=== PATIENT | male | born 1940 | race Caucasian/White ===

== ENCOUNTER 2018-07-08 11:26 | Inpatient (IN) ==
[2018-07-08] MEDS ORDERED: FUROSEMIDE 100 MG/10 ML VIAL IV STA (11:48)
[2018-07-08 12:25] LABS: Basophils % 0.6 % (0.0-0.8); Eosinophils # 0.2 10*3/uL (0.0-0.87); Eosinophils % 3.7 % (0.00-10.9); Hematocrit 40.2 VOL% (42.0-52.0); Hemoglobin 12.6 GM/DL (14.0-18.0); Immature Granulocytes % 0.5 %; Immature Granulocytes Absolute 0.03 #; Lymphocytes # 1.2 10*3/uL (1.4-4.0); Lymphocytes % 18.6 % (21.2-54.2); Mean Corpuscular HGB Conc 31.3 GM/DL (32-36); Mean Corpuscular Hemoglobin 29 PG (27-34); Mean Corpuscular Volume 91.6 FL (87-102); Mean Platelet Volume 10.9 FL (9.6-12.0); Monocytes # 0.4 10*3/uL (0.11-0.8); Monocytes % 6.8 % (1.7-12.7); Neutrophils # 4.5 10*3/uL (1.4-7.4); Neutrophils % 69.8 % (38.7-73.9); Platelet Count 133 T/CUMM (130-400); Red Blood Count 4.39 MC/CUMM (3.8-5.5); Red Cell Distribution Width 15.8 % (9.3-17.3); White Blood Count 6.5 T/CUMM (4-12)
[2018-07-08] MEDS ORDERED: FUROSEMIDE 20 MG/2 ML VIAL ONE (12:29)
[2018-07-08] MEDS ORDERED: FUROSEMIDE 40 MG/4 ML VIAL ONE (12:29)
[2018-07-08 12:51] LABS: Albumin 3.7 G/DL (3.4-5.0); Bilirubin,Total 0.7 MG/DL (0.2-1.0); Calcium 8.7 MG/DL (8.5-10.1); Osmolality,Calculated 288.7 MOS/KG (273-304)
[2018-07-08] MEDS ORDERED: traMADol 50 MG TABLET ONE (15:07)
[2018-07-08] MEDS ORDERED: traMADol 50 MG TABLET PO STA (15:08)
[2018-07-08] MEDS ORDERED: ONDANSETRON 4 MG/2 ML VIAL IV PRN (16:22)
[2018-07-08] MEDS ORDERED: ACETAMINOPHEN 325 MG TABLET PO PRN (16:22)
[2018-07-08] MEDS ORDERED: ENOXAPARIN 40 MG/0.4 ML SYRINGE SUBCUT SCH (16:30)
[2018-07-08] MEDS ORDERED: DIAZEPAM 5 MG TABLET PO STA (17:11)
[2018-07-08] MEDS: LEVOFLOXACIN INJ 500 MG in PREMIX 1 EACH IV SCH (18:53)
[2018-07-08] MEDS: APIXABAN 5 MG TABLET PO SCH (21:11)
[2018-07-08] MEDS: FUROSEMIDE 40 MG/4 ML VIAL IV SCH (21:11)
[2018-07-08] MEDS: CLINDAMYCIN 300 MG CAPSULE PO SCH (21:11)
[2018-07-08] MEDS: TAMSULOSIN 0.4 MG CAPSULE PO SCH (21:19)
[2018-07-08] MEDS: CARVEDILOL 6.25 MG TABLET PO SCH (21:19)
[2018-07-08] MEDS: rOPINIRole 1 MG TABLET PO SCH (21:19)
[2018-07-08] MEDS: GABAPENTIN 400 MG CAPSULE PO SCH (21:19)
[2018-07-08 21:54] LABS: CKMB % 2.8 %
[2018-07-08 23:03] LABS: CKMB % 2.8 %
[2018-07-09 06:01] LABS: Risk Ratio 4.24; Thyroid Stimulating Hormone 1.9 uIU/ml (0.358-3.74); VLDL CHOLESTEROL 19.6 MG/DL
[2018-07-09] MEDS ORDERED: INSULIN ASPART PROTAMINE/ASPART 70/30 100 UNIT/ML SUBCUT SCH ×3 (07:30→17:00)
[2018-07-09] MEDS: LISINOPRIL 2.5 MG TABLET PO SCH (09:20)
[2018-07-09] MEDS: GABAPENTIN 400 MG CAPSULE PO SCH ×3 (09:20→21:33)
[2018-07-09] MEDS: APIXABAN 5 MG TABLET PO SCH ×2 (09:20→21:30)
[2018-07-09] MEDS: CARVEDILOL 6.25 MG TABLET PO SCH ×2 (09:20→20:29)
[2018-07-09] MEDS: CLINDAMYCIN 300 MG CAPSULE PO SCH ×3 (09:20→21:32)
[2018-07-09] MEDS: ASPIRIN EC 81 MG TABLET PO SCH (09:20)
[2018-07-09] MEDS: FUROSEMIDE 40 MG/4 ML VIAL IV SCH ×2 (09:21→21:30)
[2018-07-09] MEDS: LEVOFLOXACIN INJ 500 MG in PREMIX 1 EACH IV SCH (17:38)
[2018-07-09] MEDS: TAMSULOSIN 0.4 MG CAPSULE PO SCH (21:31)
[2018-07-09] MEDS: rOPINIRole 1 MG TABLET PO SCH (21:32)
[2018-07-10 06:02] LABS: Calcium 8.6 MG/DL (8.5-10.1); Osmolality,Calculated 286.4 MOS/KG (273-304); Potassium 3.8 MMOL/L (3.5-5.1)
[2018-07-10] MEDS ORDERED: INSULIN ASPART PROTAMINE/ASPART 70/30 100 UNIT/ML SUBCUT SCH (07:30)
[2018-07-10] MEDS: ASPIRIN EC 81 MG TABLET PO SCH (09:32)
[2018-07-10] MEDS: LISINOPRIL 2.5 MG TABLET PO SCH (09:32)
[2018-07-10] MEDS: GABAPENTIN 400 MG CAPSULE PO SCH (09:32)
[2018-07-10] MEDS: CARVEDILOL 6.25 MG TABLET PO SCH (09:32)
[2018-07-10] MEDS: APIXABAN 5 MG TABLET PO SCH (09:32)
[2018-07-10] MEDS: FUROSEMIDE 40 MG/4 ML VIAL IV SCH (09:33)
[2018-07-10] MEDS: CLINDAMYCIN 300 MG CAPSULE PO SCH (09:33)
[2018-07-10] MEDS ORDERED: LEVOFLOXACIN 500 MG TABLET PO SCH (12:00)
[2018-07-10 18:50] VITALS: BP 125/70
== END 2018-07-10 13:35 | disposition home or self-care (01) | DRG 291 ==
LOC: N.ED 11:26 → N.EDINP 16:22 → N.3E 18:20
PROVIDERS: ADMIT Hospitalist; ATTEND Hospitalist

== ENCOUNTER 2021-02-11 19:09 | Inpatient (IN) ==
[2021-02-11 19:32] LABS: Basophils % 0.3 % (0.0-0.8); Eosinophils # 0.2 10*3/uL (0.0-0.87); Eosinophils % 2.1 % (0.00-10.9); Hematocrit 38.7 VOL% (42.0-52.0); Immature Granulocytes % 0.6 %; Immature Granulocytes Absolute 0.06 #; Lymphocytes % 10.1 % (21.2-54.2); Mean Corpuscular Volume 94.2 FL (87-102); Mean Platelet Volume 11.4 FL (9.6-12.0); Monocytes % 5.4 % (1.7-12.7); Neutrophils % 81.5 % (38.7-73.9); Platelet Count 115 T/CUMM (130-400); Red Blood Count 4.11 MC/CUMM (3.8-5.5); White Blood Count 10.2 T/CUMM (4-12)
[2021-02-11 19:46] LABS: INR 1.2; PT Patient Result 12.8 SECS (9.8-11.9); Partial Thromboplastin Time 27.1 SECS (23.9-33.8)
[2021-02-11 20:02] LABS: Albumin 3.4 G/DL (3.4-5.0); Bilirubin,Total 1.4 MG/DL (0.2-1.0); Calcium 7.7 MG/DL (8.5-10.1); Osmolality,Calculated 291.1 MOS/KG (273-304); Potassium 3.8 MMOL/L (3.5-5.1); Total Protein 6.4 G/DL (6.4-8.2)
[2021-02-11 22:03] LABS: Bilirubin,Urine Negative (Negative); Blood, Urine Small mg/dL (Negative); Glucose,Urine (UA) 150 mg/dL (Negative); Hyaline Casts,Urine 7 /LPF (0-3); Ketones,Urine Negative (Negative); Mucus,Urine Occasional /LPF (Occasional); Nitrite,Urine Negative (Negative); Protein,Urine 30 MG/DL; RBC,Urine <1 /HPF (0-4); Squamous Epithelial Cell,Urine Occasional /HPF (0-10); Urine Appearance CLEAR (Clear); Urine Color Yellow (Yellow); Urine Specific Gravity 1.015 (1.001-1.035); WBC,Urine 1 /HPF (0-6)
[2021-02-12] MEDS ORDERED: ALBUTEROL/IPRATROPIUM 3 ML NEB RESP TX STA (02:48)
[2021-02-12] MEDS ORDERED: ONDANSETRON 4 MG/2 ML VIAL IV PRN (02:49)
[2021-02-12] MEDS ORDERED: GLUCAGON 1 MG VIAL IM PRN (02:49)
[2021-02-12] MEDS ORDERED: ALBUTEROL/IPRATROPIUM 3 ML NEB RESP TX PRN (02:49)
[2021-02-12] MEDS ORDERED: DEXTROSE 50% 25 GM/50 ML VIAL IV PRN (02:49)
[2021-02-12] MEDS ORDERED: DOCUSATE SODIUM 100 MG CAPSULE PO PRN (02:49)
[2021-02-12] MEDS: ENOXAPARIN 40 MG/0.4 ML SYRINGE SUBCUT SCH (03:37)
[2021-02-12] MEDS: FUROSEMIDE 40 MG/4 ML VIAL IV SCH ×3 (03:38→17:14)
[2021-02-12] MEDS ORDERED: CALCIUM GLUCONATE 1,000 MG in SODIUM CHLORIDE 0.9% 100 ML IV ONE (03:41)
[2021-02-12] MEDS: cefTRIAXone 1,000 MG in SYRINGE 1 EACH IV SCH (06:02)
[2021-02-12] MEDS: AZITHROMYCIN INJ 500 MG in SODIUM CHLORIDE 0.9% 250 ML IV SCH (06:05)
[2021-02-12 06:51] LABS: Basophils % 0.2 % (0.0-0.8); Eosinophils # 0.2 10*3/uL (0.0-0.87); Eosinophils % 2.4 % (0.00-10.9); Hematocrit 40.7 VOL% (42.0-52.0); Hemoglobin 12.8 GM/DL (14.0-18.0); Immature Granulocytes % 0.4 %; Immature Granulocytes Absolute 0.04 #; Lymphocytes # 1.6 10*3/uL (1.4-4.0); Lymphocytes % 15.7 % (21.2-54.2); Mean Corpuscular HGB Conc 31.4 GM/DL (32-36); Mean Corpuscular Volume 94.9 FL (87-102); Mean Platelet Volume 11.8 FL (9.6-12.0); Monocytes % 6.7 % (1.7-12.7); Neutrophils % 74.6 % (38.7-73.9); Platelet Count 117 T/CUMM (130-400); Red Blood Count 4.29 MC/CUMM (3.8-5.5); Red Cell Distribution Width 16.3 % (9.3-17.3); White Blood Count 9.9 T/CUMM (4-12)
[2021-02-12] MEDS ORDERED: INSULIN ASPART PROTAMINE/ASPART 70/30 100 UNIT/ML SUBCUT SCH (07:30)
[2021-02-12] MEDS: ACETAMINOPHEN 325 MG TABLET PO PRN (07:31)
[2021-02-12 07:37] LABS: Calcium 8.6 MG/DL (8.5-10.1); Osmolality,Calculated 282.4 MOS/KG (273-304); Potassium 3.7 MMOL/L (3.5-5.1); Risk Ratio 3.76; Thyroid Stimulating Hormone 1.1 uIU/ml (0.358-3.74); VLDL CHOLESTEROL 15.6 MG/DL
[2021-02-12] MEDS ORDERED: POTASSIUM CHLORIDE 20 MEQ TABLET PO PRN (08:15)
[2021-02-12] MEDS: GABAPENTIN 400 MG CAPSULE PO SCH ×3 (09:00→21:47)
[2021-02-12] MEDS ORDERED: lisinopriL 5 MG TABLET PO SCH (09:00)
[2021-02-12] MEDS ORDERED: lisinopriL 10 MG TABLET PO SCH (09:00)
[2021-02-12] MEDS: rOPINIRole 1 MG TABLET PO SCH ×2 (09:01→21:47)
[2021-02-12] MEDS: ASPIRIN EC 81 MG TABLET PO SCH (09:02)
[2021-02-12] MEDS: INSULIN LISPRO 100 UNIT/ML SUBCUT SCH ×4 (09:04→21:48)
[2021-02-12] MEDS: carvediloL 6.25 MG TABLET PO SCH ×2 (09:06→21:48)
[2021-02-12] MEDS: amLODIPine 10 MG TABLET PO SCH (09:12)
[2021-02-12] MEDS: TAMSULOSIN 0.4 MG CAPSULE PO SCH (21:47)
[2021-02-12] MEDS: INSULIN ASPART PROTAMINE/ASPART 70/30 100 UNIT/ML SUBCUT SCH (21:49)
[2021-02-13 03:53] LABS: Basophils % 0.2 % (0.0-0.8); Eosinophils # 0.2 10*3/uL (0.0-0.87); Eosinophils % 4.2 % (0.00-10.9); Hematocrit 35.3 VOL% (42.0-52.0); Hemoglobin 10.8 GM/DL (14.0-18.0); Immature Granulocytes % 0.4 %; Immature Granulocytes Absolute 0.02 #; Lymphocytes # 1.1 10*3/uL (1.4-4.0); Lymphocytes % 19.5 % (21.2-54.2); Mean Corpuscular HGB Conc 30.6 GM/DL (32-36); Mean Corpuscular Volume 95.1 FL (87-102); Mean Platelet Volume 11.9 FL (9.6-12.0); Monocytes % 7.4 % (1.7-12.7); Neutrophils % 68.3 % (38.7-73.9); Platelet Count 109 T/CUMM (130-400); Red Blood Count 3.71 MC/CUMM (3.8-5.5); Red Cell Distribution Width 15.8 % (9.3-17.3); White Blood Count 5.7 T/CUMM (4-12)
[2021-02-13] MEDS: ENOXAPARIN 40 MG/0.4 ML SYRINGE SUBCUT SCH (04:09)
[2021-02-13 04:12] LABS: Calcium 8.1 MG/DL (8.5-10.1); Osmolality,Calculated 285.3 MOS/KG (273-304); Potassium 3.6 MMOL/L (3.5-5.1)
[2021-02-13] MEDS: cefTRIAXone 1,000 MG in SYRINGE 1 EACH IV SCH (05:46)
[2021-02-13] MEDS: AZITHROMYCIN INJ 500 MG in SODIUM CHLORIDE 0.9% 250 ML IV SCH (05:46)
[2021-02-13] MEDS: ACETAMINOPHEN 325 MG TABLET PO PRN (07:38)
[2021-02-13] MEDS: INSULIN LISPRO 100 UNIT/ML SUBCUT SCH ×4 (08:49→22:10)
[2021-02-13] MEDS: GABAPENTIN 400 MG CAPSULE PO SCH ×3 (10:02→21:43)
[2021-02-13] MEDS: ASPIRIN EC 81 MG TABLET PO SCH (10:03)
[2021-02-13] MEDS: amLODIPine 10 MG TABLET PO SCH (10:03)
[2021-02-13] MEDS: carvediloL 6.25 MG TABLET PO SCH ×2 (10:04→21:43)
[2021-02-13] MEDS: FUROSEMIDE 40 MG/4 ML VIAL IV SCH ×2 (10:05→15:15)
[2021-02-13] MEDS: rOPINIRole 1 MG TABLET PO SCH ×2 (10:05→21:43)
[2021-02-13] MEDS: INSULIN ASPART PROTAMINE/ASPART 70/30 100 UNIT/ML SUBCUT SCH ×2 (10:35→22:10)
[2021-02-13] MEDS ORDERED: ALBUTEROL/IPRATROPIUM 3 ML NEB RESP TX SCH (17:00)
[2021-02-13] MEDS: ALBUTEROL/IPRATROPIUM 3 ML NEB RESP TX SCH (19:56)
[2021-02-13] MEDS: TAMSULOSIN 0.4 MG CAPSULE PO SCH (21:43)
[2021-02-14] MEDS: ALBUTEROL/IPRATROPIUM 3 ML NEB RESP TX SCH ×2 (00:49→07:29)
[2021-02-14] MEDS: ENOXAPARIN 40 MG/0.4 ML SYRINGE SUBCUT SCH (03:56)
[2021-02-14] MEDS: cefTRIAXone 1,000 MG in SYRINGE 1 EACH IV SCH (06:01)
[2021-02-14] MEDS: ACETAMINOPHEN 325 MG TABLET PO PRN (07:02)
[2021-02-14] MEDS ORDERED: AZITHROMYCIN 250 MG TABLET PO SCH (09:00)
[2021-02-14] MEDS: INSULIN ASPART PROTAMINE/ASPART 70/30 100 UNIT/ML SUBCUT SCH (09:40)
[2021-02-14] MEDS: GABAPENTIN 400 MG CAPSULE PO SCH (09:42)
[2021-02-14] MEDS: rOPINIRole 1 MG TABLET PO SCH (09:46)
[2021-02-14] MEDS: amLODIPine 10 MG TABLET PO SCH (09:47)
[2021-02-14] MEDS: INSULIN LISPRO 100 UNIT/ML SUBCUT SCH (09:48)
[2021-02-14] MEDS: carvediloL 6.25 MG TABLET PO SCH (09:49)
[2021-02-14] MEDS: FUROSEMIDE 40 MG/4 ML VIAL IV SCH (09:49)
[2021-02-14] MEDS: ASPIRIN EC 81 MG TABLET PO SCH (09:49)
[2021-02-14 10:41] LABS: Basophils % 0.4 % (0.0-0.8); Eosinophils # 0.3 10*3/uL (0.0-0.87); Eosinophils % 5.1 % (0.00-10.9); Hematocrit 38.7 VOL% (42.0-52.0); Hemoglobin 12.1 GM/DL (14.0-18.0); Immature Granulocytes % 0.2 %; Immature Granulocytes Absolute 0.01 #; Lymphocytes # 1.1 10*3/uL (1.4-4.0); Lymphocytes % 21.1 % (21.2-54.2); Mean Corpuscular HGB Conc 31.3 GM/DL (32-36); Mean Corpuscular Volume 94.2 FL (87-102); Mean Platelet Volume 11.2 FL (9.6-12.0); Monocytes % 5.3 % (1.7-12.7); Neutrophils % 67.9 % (38.7-73.9); Platelet Count 132 T/CUMM (130-400); Red Blood Count 4.11 MC/CUMM (3.8-5.5); Red Cell Distribution Width 15.5 % (9.3-17.3); White Blood Count 5.1 T/CUMM (4-12)
[2021-02-14 10:59] LABS: Eosinophils 5 % (0-10); Lymphocytes 22 % (20-55); Segmented Neutrophils 64 % (50-85); Total Cells Counted 100
[2021-02-14 11:00] LABS: Platelet Estimate Adequate
[2021-02-14 11:24] LABS: Calcium 8.8 MG/DL (8.5-10.1); Osmolality,Calculated 280.7 MOS/KG (273-304); Potassium 3.6 MMOL/L (3.5-5.1)
[2021-02-14 12:34] VITALS: BP 146/61
== END 2021-02-14 13:47 | disposition home health service (06) | DRG 280 ==
LOC: EDBD → EDUNIT# → N.EDINP 19:09 → N.ED 19:09 → N.EDINP 02-12 05:11 → N.TELEN 02-12 05:33
PROVIDERS: ADMIT Internal Medicine; ATTEND Internal Medicine